=== PATIENT | male | born 1950 ===

== ENCOUNTER 2017-06-28 04:33 | Inpatient (IN) | payer MEDICARE, OTHER ==
[2017-06-28 04:38] VITALS: BMI 30.7
--- NOTE | 2017-06-28 04:55 | ED PDOC ---
Arrival/HPI - General Historian: Patient - History of Present Illness Symptom Onset: Sudden Symptom Course: Unchanged Activities at Onset: Rest Context: Home <Vitor Vela - Last Filed: 06/28/17 05:33> <Sergo Lala - Last Filed: 06/28/17 07:42> - General Chief Complaint: Medical Clearance Time Seen by Provider: 06/28/17 04:38 - History of Present Illness Narrative History of Present Illness (Text): 06/28/17 04:54 A 67 year old male, whose past medical history includes CAD, was brought in by EMS to the emergency department after called EMS because patient was moaning in bed. Patient reports nothing is bothering him. Denies any pain. Patient states he wasn't going to call EMS. Patient was diaphoretic and confused. Patient is poor historian. Denies any complaints at this time. (Vitor Vela) Past Medical History - Provider Review Nursing Documentation Reviewed: Yes - Cardiac Hx Hypertension: Yes Hx Pacemaker: No Other/Comment: stent x1 - Pulmonary Hx Respiratory Disorders: No - Neurological Hx Neurological Disorder: No Hx Paralysis: No - HEENT Hx HEENT Disorder: No - Renal Hx Renal Disorder: No - Endocrine/Metabolic Hx Endocrine Disorders: No - Hematological/Oncological Hx Blood Disorders: No Hx Blood Transfusions: No - Integumentary Hx Dermatological Disorder: No - Musculoskeletal/Rheumatological Hx Musculoskeletal Disorders: No - Gastrointestinal Hx Gastrointestinal Disorders: No - Genitourinary/Gynecological Hx Genitourinary Disorders: No - Psychiatric Hx Psychophysiologic Disorder: No Hx Emotional Abuse: No Hx Physical Abuse: No Hx Substance Use: No - Surgical History Hx Coronary Stent: Yes - Anesthesia Hx Anesthesia Reactions: No Hx Malignant Hyperthermia: No - Suicidal Assessment Feels Threatened In Home Enviroment: No <Vitor Vela - Last Filed: 06/28/17 05:33> Family/Social History - Physician Review Nursing Documentation Reviewed: Yes Family/Social History: No Known Family HX Smoking Status: Unknown If Ever Smoked Hx Alcohol Use: No Hx Substance Use: No <Vitor Vela - Last Filed: 06/28/17 05:33> Allergies/Home Meds <Vitor Vela - Last Filed: 06/28/17 05:33> <Sergo Lala - Last Filed: 06/28/17 07:42> Allergies/Adverse Reactions: Allergies No Known Allergies Allergy (Verified 06/28/17 04:38) Home Medications: Home Meds Medication Instructions Recorded Confirmed Aspirin [Ecotrin] 81 mg PO DAILY 02/25/16 06/28/17 Review of Systems - Physician Review All systems were reviewed & negative as marked: Yes - Review of Systems Constitutional: absent: Fevers Cardiovascular: absent: Chest Pain Gastrointestinal: absent: Abdominal Pain Neurological: Other (confused) Endocrine: Diaphoresis <Vitor Vela Filed: 06/28/17 05:33> Physical Exam Vital Signs Reviewed: Yes Temperature: Afebrile Blood Pressure: Normal Pulse: Regular Respiratory Rate: Normal Appearance: Positive for: Well-Appearing, Non-Toxic, Comfortable Pain Distress: None Mental Status: Positive for: Alert and Oriented X 3 Finger Stick Blood Glucose: 140 - Systems Exam Head: Present: Atraumatic, Normocephalic Pupils: Present: PERRL Extroacular Muscles: Present: EOMI Conjunctiva: Present: Normal Mouth: Present: Moist Mucous Membranes Neck: Present: Normal Range of Motion. No: Bruit Respiratory/Chest: Present: Clear to Auscultation, Good Air Exchange. No: Respiratory Distress, Accessory Muscle Use Cardiovascular: Present: Regular Rate and Rhythm, Normal S1, S2. No: Murmurs Abdomen: Present: Normal Bowel Sounds. No: Tenderness, Distention, Peritoneal Signs Back: Present: Normal Inspection Upper Extremity: Present: Normal Inspection. No: Cyanosis, Edema Lower Extremity: Present: Normal Inspection. No: Edema Neurological: Present: GCS=15, CN II-XII Intact, Speech Normal Skin: Present: Warm, Dry, Normal Color. No: Rashes Psychiatric: Present: Alert, Oriented x 3, Normal Insight, Normal Concentration <Vitor Vela Filed: 06/28/17 05:33> Vital Signs Temp Pulse Pulse Resp BP BP Pulse Ox 06/28/17 07:00 59 L 120/62 16 L 06/28/17 05:24 61 16 128/66 99 06/28/17 05:06 77 121/76 06/28/17 04:42 97.5 F L 77 16 121/76 96 Medical Decision Making - Lab Interpretations I have reviewed the lab results: Yes - EKG Interpretation Interpreted by ED Physician: Yes Type: 12 lead EKG <Vitor Vela - Last Filed: 06/28/17 05:33> <Sergo Lala - Last Filed: 06/28/17 07:42> ED Course and Treatment: 06/28/17 04:52 Impression: A 67 year old male, diaphoretic and confused, with no physical complaints. Plan: -- EKG -- CT head -- chest xray -- labs -- Zofran -- Reassess and disposition Progress Notes: EKG: Ordered, reviewed, and independently interpreted the EKG. Rate : 71 BPM Rhythm : NSR Interpretation : Normal intervals, normal axis 06/28/17 05:32 Chest xray: No active disease, as read by me. CT Head Without Intravenous Contrast IMPRESSION: 1. No definite acute intracranial abnormality. Acute infarction may be CT occult within first 24 hours. If a focal deficit persists, consider followup CT or MRI for further evaluation. 2. Sinus disease. 3. Incidental/non-acute findings are described above. Dictated and Authenticated by: Haseeb Shah MD 06/28/2017 5:26 AM Eastern Time ([place] & [place]) (Vitor Vela) 06/28/17 07:08 Turned over to me by , waiting for a second troponin though his first troponin is positive at 0.1. A call has been placed to the hospitalist for admission. 06/28/17 07:20 Discussed with . 06/28/17 07:41 Discussed with . (Sergo Lala) - Lab Interpretations Lab Results: 06/28/17 04:50 06/28/17 05:00 Lab Results 06/28/17 05:30: Urine Color yellow, Urine Appearance Slight-cloudy, Urine pH 6.0 , Ur Specific [place] >= 1.030, Urine Protein >=300 H, Urine Glucose (UA) 100 H , Urine Ketones Negative, Urine Blood Trace-intact H, Urine Nitrate Negative, Urine Bilirubin Negative, Urine Urobilinogen 0.2, Ur Leukocyte Esterase Negative , Urine RBC 5 - 10, Urine WBC 2 - 5, Ur Epithelial Cells 6 - 8, Amorphous Sediment Moderate 06/28/17 05:09: pCO2 38, pO2 68.0 L, HCO3 23.5, ABG pH 7.40, ABG Total CO2 24.7 , ABG O2 Saturation 96.8, ABG Base Excess -1.1, ABG Potassium 3.6, Glucose 161 H , Lactate 1.6, FiO2 21.0, Sodium 138.0, Chloride 108.0 H, Arterial Blood Potassium 3.6 06/28/17 05:00: Sodium 142, Potassium 3.7, Chloride 106, Carbon Dioxide 22, Anion Gap 19, BUN 18, Creatinine 0.9, Est GFR ( Amer) > 60, Est GFR (Non- Af Amer) > 60, Random Glucose 147 H, Calcium 9.2, Total Bilirubin 0.5, AST 56, ALT 71 H, Alkaline Phosphatase 64, Lactate Dehydrogenase 697, Total Creatine Kinase 353 H, CK-MB (CK-2) 4.0 H, CK-MB (CK-2) % Cancelled, Troponin I 0.10, NT- Pro-B Natriuret Pep 111, Total Protein 6.8, Albumin 3.7, Globulin 3.1, Albumin/ Globulin Ratio 1.2 06/28/17 04:50: Influenza Typ A,B (EIA) Negative for flu a/b 06/28/17 04:50: PT 11.3, INR 0.98 06/28/17 04:50: WBC 8.8 D, RBC 5.05, Hgb 14.7, Hct 45.1, MCV 89.3, MCH 29.1, MCHC 32.6, RDW 14.1, Plt Count 169, MPV 11.1 H, Gran % 42.5 L, Lymph % (Auto) 44.8 H, [place] % (Auto) 10.3 H, Eos % (Auto) 2.1, Baso % (Auto) 0.3, Gran # 3.73, Lymph # (Auto) 3.9 H, [place] # (Auto) 0.9 H, Eos # (Auto) 0.2, Baso # (Auto) 0.03 06/28/17 04:39: POC Glucose (mg/dL) 140 H - RAD Interpretation Radiology Orders: 06/28/17 04:39 HEAD W/O CONTRAST [CT] Stat CHEST PORTABLE [RAD] Stat - Medication Orders Current Medication Orders: Discontinued Medications Sodium Chloride (Sodium Chloride 0.9%) 1,000 mls @ 999 mls/hr IV .Q1H1M STA Stop: 06/28/17 07:30 Last Admin: 06/28/17 06:59 Dose: 999 mls/hr eMAR Start Stop Document 06/28/17 06:59 OCS (Rec: 06/28/17 07:00 OCS [id number]) Intravenous Solution Start Date 06/28/17 Start Time 07:00 End Date 06/28/17 End time 08:01 Total Infusion Time 61 Ondansetron HCl (Zofran Inj) 4 mg IVP STAT STA Stop: 06/28/17 04:49 Last Admin: 06/28/17 05:29 Dose: 4 mg IVP Administration Document 06/28/17 05:29 OCS (Rec: 06/28/17 05:29 OCS [id number]) Charges for Administration # of IVP Administrations 1 - Scribe Statement The provider has reviewed the documentation as recorded by the Scribe <Vitor Vela - Last Filed: 06/28/17 05:33> <Sergo Lala - Last Filed: 06/28/17 07:42> - Scribe Statement Oskar De Jesus Provider Scribe Attestation: All medical record entries made by the Scribe were at my direction and personally dictated by me. I have reviewed the chart and agree that the record accurately reflects my personal performance of the history, physical exam, medical decision making, and the department course for this patient. I have also personally directed, reviewed, and agree with the discharge instructions and disposition. (Vitor Vela) Disposition/Present on Arrival - Present on Arrival History of DVT/PE: No History of Uncontrolled Diabetes: No Urinary Catheter: No History of Decub. Ulcer: No History Surgical Site Infection Following: None <Vitor Vela - Last Filed: 06/28/17 05:33> - Present on Arrival Any Indicators Present on Arrival: No History of DVT/PE: No History of Uncontrolled Diabetes: No Urinary Catheter: No History of Decub. Ulcer: No - Disposition Have Diagnosis and Disposition been Completed?: Yes Disposition Time: 07:42 Patient Plan: Observation, Telemetry <Sergo Lala - Last Filed: 06/28/17 07:42> - Disposition Diagnosis: Elevated troponin, Near syncope Disposition: HOSPITALIZED Condition: GOOD Referrals: Castillo Puentes MD [Primary Care Provider] - Follow up with primary Forms: [employer] (Japanese)
[2017-06-28 05:13] LABS: ARTERIAL BLOOD GAS HCO3 23.5 mmol/L (21-28); ARTERIAL BLOOD GAS O2 SAT 96.8 % (95-98); ARTERIAL BLOOD GAS PCO2 38 mm/Hg (35-45); ARTERIAL BLOOD GAS TCO2 24.7 mmol.L (22-28)
[2017-06-28 05:14] LABS: BASO # 0.03 K/mm3 (0.0-2.0); BASO % 0.3 % (0.0-3.0); EOS # 0.2 (0.0-0.7); EOS % 2.1 % (1.5-5.0); GRAN # 3.73 (1.4-6.5); GRAN % 42.5 % (50.0-68.0); HEMOGLOBIN 14.7 g/dL (14.0-18.0); LYMPH # 3.9 (1.2-3.4); LYMPH % 44.8 % (22.0-35.0); MEAN CELL VOLUME 89.3 fl (80.0-105.0); MEAN CORPUSCULAR HEMOGLOBIN 29.1 pg (25.0-35.0); MEAN CORPUSCULAR HGB CONC 32.6 g/dl (31.0-37.0); MEAN PLATELET VOLUME 11.1 fl (7.0-11.0); MONO # 0.9 (0.1-0.6); MONO % 10.3 % (1.0-6.0); RBC 5.05 10^6/uL (3.5-6.1); RED CELL DISTRIBUTION WIDTH 14.1 % (11.5-14.5); WHITE BLOOD COUNT 8.8 10^3/ul (4.5-11.0)
[2017-06-28 05:19] LABS: INR 0.98 (0.93-1.08); PROTHROMBIN TIME 11.3 SECONDS (9.4-12.5)
--- NOTE | 2017-06-28 05:26 | CT ---
EXAM: CT Head Without Intravenous Contrast CLINICAL HISTORY: 67 years old, male; Signs and symptoms; Altered mental status/memory loss; Additional info: Confusion TECHNIQUE: Axial computed tomography images of the head/brain without intravenous contrast. All CT scans at this facility use one or more dose reduction techniques, viz.: automated exposure control; ma/kV adjustment per patient size (including targeted exams where dose is matched to indication; i.e. head); or iterative reconstruction technique. Coronal and sagittal reformatted images were created and reviewed. COMPARISON: No relevant prior studies available. FINDINGS: Brain: Mild atrophy. No intracranial hemorrhage. No mass. No definite edema. Ventricles: No hydrocephalus. Bones/joints: No acute fracture. Soft tissues: Unremarkable. Vasculature: Minimal atherosclerotic disease of intracranial arteries. Sinuses: [id number] mucosal thickening of maxillary sinuses. Scattered minimal mucosal thickening of remaining sinuses. Few maxillary retention cysts. Air-fluid level within LEFT maxillary sinus. Mastoid air cells: No mastoid effusion. Orbits: Unremarkable as visualized. IMPRESSION: 1. No definite acute intracranial abnormality. Acute infarction may be CT occult within first 24 hours. If a focal deficit persists, consider followup CT or MRI for further evaluation. 2. Sinus disease. 3. Incidental/non-acute findings are described above.
[2017-06-28 05:32] LABS: B-TYPE NATRIURETIC PEPTIDE 111 pg/mL (0-450)
[2017-06-28 05:49] LABS: ALB/GLOB RATIO 1.2 (1.1-1.8); ALBUMIN 3.7 g/dL (3.0-4.8); ALT/SGPT 71 U/L (7-56); AST/SGOT 56 U/L (17-59); BLOOD UREA NITROGEN 18 mg/dL (7-21); CALCIUM 9.2 mg/dL (8.4-10.5); GFR AFRICAN-AMERICAN > 60; GFR NON-AFRICAN AMERICAN > 60
[2017-06-28 05:58] LABS: URINE BILIRUBIN NEGATIVE (NEGATIVE); URINE BLOOD TRACE-INTACT (NEGATIVE); URINE GLUCOSE (UA) 100 mg/dL (NEGATIVE); URINE LEUKOCYTE ESTERASE NEGATIVE Leu/uL (NEGATIVE); URINE NITRATE NEGATIVE (NEGATIVE); URINE PROTEIN >=300 mg/dL (<30 mg/dL); URINE UROBILINOGEN 0.2 E.U./dL (<1 E.U./dL)
[2017-06-28 05:59] LABS: URINE APPEARANCE SLIGHT-CLOUDY (CLEAR)
[2017-06-28 06:02] LABS: URINE AMORPHOUS SEDIMENT MODERATE
[2017-06-28] MEDS ORDERED: Sodium Chloride 0.9% 1,000 ML IV STA (06:30)
[2017-06-28 08:01] LABS: CK-MB 3.8 ng/mL (0.0-3.6); TROPONIN I 0.13 ng/mL
[2017-06-28] MEDS ORDERED: Nitroglycerin 2% Ointment Foilpak UD TOP STA (08:27)
[2017-06-28] MEDS ORDERED: Enoxaparin 80 mg Syringe SC STA (08:27)
--- NOTE | 2017-06-28 08:27 | RAD ---
HISTORY: Generalized Weakness COMPARISON: No prior. FINDINGS: LUNGS: No active pulmonary disease. PLEURA: No significant pleural effusion identified, no pneumothorax apparent. CARDIOVASCULAR: Normal. OSSEOUS STRUCTURES: No significant abnormalities. VISUALIZED UPPER ABDOMEN: Normal. OTHER FINDINGS: None. IMPRESSION: No active disease.
--- NOTE | 2017-06-28 09:10 | CP.PCM.HP ---
<Sophia Elizabeth - Last Filed: 06/28/17 12:41> History of Present Illness - History of Present Illness History of Present Illness: 67 yo male with PMH of CAD s/p 3 stents presents to ED after found him minimally responsive this morning. Per at bedside patient was snoring abnormally and when she tried to wake him up he was not responding. She also states that he was diaphoretic and holding his chest. She called EMS. Patient states that he does not recall the event and woke up in the ED. He states that he was nausea when he awoke and report a headache with some lightheadedness when he sits up. He does report 1 episode of SOB while taking out the trash last night. He states that he normally does not become sob and exercise about 1 hour a day. His last stress test was about 1 year ago. 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 PMH: PSH: left inguinal hernia repair, shoulder repair, cardiac cath with stents social history: denies smoking, occasional alcohol use, denies illicit drug use Family history: father from [place] at age 51, mother HTN, CHF, brother a. fib, hyperlipidemia allergy: NKDA home meds: lopressor 25mg BID, atrovastatin 40mg daily, asa 81mg daily PMD: Dr. Puentes cardiology: Haylee Present on Admission - Present on Admission Any Indicators Present on Admission: No Review of Systems - Constitutional Constitutional: Headache. absent: Chills, Fatigue, Fever, Lethargy - EENT Eyes: absent: Blurred Vision, Change in Vision Nose/Mouth/Throat: absent: Nasal Congestion, Nasal Discharge, Sore Throat - Cardiovascular Cardiovascular: Diaphoresis. absent: Chest Pain, Chest Pain at Rest, Dyspnea, Leg Edema, Palpitations - Respiratory Respiratory: absent: Cough, Dyspnea - Gastrointestinal Gastrointestinal: absent: Abdominal Pain, Change in Bowel Habits, Constipation, Diarrhea, Nausea, Vomiting - Genitourinary Genitourinary: absent: Dysuria, Flank Pain, Hematuria - Integumentary Integumentary: absent: Pruritus, Rash, Skin Ulcer, Swelling, Wounds - Neurological Neurological: Headaches. absent: Dizziness, Numbness, Focal Weakness, Syncope, Weakness - Hematologic/Lymphatic Hematologic: absent: Easy Bleeding, Easy Bruising Past Patient History - Past Social History Smoking Status: Unknown If Ever Smoked - CARDIAC Hx Hypertension: Yes Hx Pacemaker: No Other/Comment: stent x1 - PULMONARY Hx Respiratory Disorders: No - NEUROLOGICAL Hx Neurological Disorder: No Hx Paralysis: No - HEENT Hx HEENT Problems: No - RENAL Hx Chronic Kidney Disease: No - ENDOCRINE/METABOLIC Hx Endocrine Disorders: No - HEMATOLOGICAL/ONCOLOGICAL Hx Blood Disorders: No Hx Blood Transfusions: No - INTEGUMENTARY Hx Dermatological Problems: No - MUSCULOSKELETAL/RHEUMATOLOGICAL Hx Musculoskeletal Disorders: No - GASTROINTESTINAL Hx Gastrointestinal Disorders: No - GENITOURINARY/GYNECOLOGICAL Hx Genitourinary Disorders: No - PSYCHIATRIC Hx Psychophysiologic Disorder: No Hx Emotional Abuse: No Hx Physical Abuse: No Hx Substance Use: No - SURGICAL HISTORY Hx Coronary Stent: Yes - ANESTHESIA Hx Anesthesia Reactions: No Hx Malignant Hyperthermia: No Meds Allergies/Adverse Reactions: Allergies Allergy/AdvReac Type Severity Reaction Status Date / Time No Known Allergies Allergy Verified 06/28/17 04:38 Physical Exam - Constitutional Appears: Well, No Acute Distress - Head Exam Head Exam: ATRAUMATIC, NORMAL INSPECTION, NORMOCEPHALIC - Eye Exam Eye Exam: EOMI, Normal appearance - ENT Exam ENT Exam: Mucous Membranes Moist - Respiratory Exam Respiratory Exam: Clear to Auscultation Bilateral, NORMAL BREATHING PATTERN. absent: Decreased Breath Sounds, Rhonchi, Wheezes, Respiratory Distress - Cardiovascular Exam Cardiovascular Exam: REGULAR RHYTHM, +S1, +S2. absent: Tachycardia, Systolic Murmur - GI/Abdominal Exam GI & Abdominal Exam: Normal Bowel Sounds, Soft. absent: Distended, Firm, Guarding, Tenderness - Extremities Exam Extremities exam: Positive for: normal inspection. Negative for: pedal edema, tenderness - Back Exam Back exam: NORMAL INSPECTION. absent: CVA tenderness (L), CVA tenderness (R) - Neurological Exam Neurological exam: Alert, Oriented x3 - Psychiatric Exam Psychiatric exam: Normal Affect, Normal Mood - Skin Skin Exam: Dry, Intact, Normal Color, Warm Results - Vital Signs Recent Vital Signs: Last Vital Signs Temp 97.5 F L 06/28/17 04:42 Pulse 71 06/28/17 08:48 Resp 18 06/28/17 08:48 BP 118/65 06/28/17 08:48 Pulse Ox 100 06/28/17 08:48 - Labs Result Diagrams: 06/28/17 04:50 06/28/17 05:00 Assessment & Plan - Assessment and Plan (Free Text) Assessment: 67 yo male with PMH of CAD s/p 3 stents presents to ED after found him minimally responsive this morning, in ED he was found to have indeterminate trops and hypoxemic on abg. Plan: elevated trops - trops 0.1, 0.13 - will continue to trend - in ED given asa 324 and lovenox 80mg - will continue lovenox 80mg BID - repeat EKG - continue home medication lopressor 25mg bid, asa 81mg, lipitor 40mg - echo - consider starting abram inhibitor - cardiology consulted episode of decreased responsiveness - resolved - possible due to hypoxemia, ischemia - glucose within normal limits - d-dimer ordered, within normal limits - flu negative - trops trending up, 0.1, 0.13, will continue to trend nausea - zofran prn GI ppx- pepcid DVT ppx- scds, lovenox <Irfan,Mohammad - Last Filed: 07/01/17 15:09> Results - Vital Signs Recent Vital Signs: Last Vital Signs Temp 98 F 07/01/17 12:00 Pulse 57 L 07/01/17 12:00 Resp 20 07/01/17 12:00 BP 141/74 07/01/17 12:00 Pulse Ox 98 07/01/17 06:00 - Labs Result Diagrams: 07/01/17 05:30 07/01/17 05:30 Labs: Laboratory Results - last 24 hr 07/01/17 07/01/17 05:30 05:30 WBC 7.4 RBC 5.09 Hgb 14.6 Hct 45.2 MCV 88.8 MCH 28.7 MCHC 32.3 RDW 14.0 Plt Count 149 MPV 11.2 H Gran % 64.5 Lymph % (Auto) 22.0 [place] % (Auto) 11.4 H Eos % (Auto) 1.8 Baso % (Auto) 0.3 Gran # 4.74 Lymph # (Auto) 1.6 [place] # (Auto) 0.8 H Eos # (Auto) 0.1 Baso # (Auto) 0.02 Sodium 141 Potassium 4.1 Chloride 105 Carbon Dioxide 26 Anion Gap 13 BUN 15 Creatinine 0.9 Est GFR ( Amer) > 60 Est GFR (Non-Af Amer) > 60 Random Glucose 90 Calcium 9.1 Total Bilirubin 0.6 AST 45 ALT 62 H Alkaline Phosphatase 49 Total Protein 6.7 Albumin 3.6 Globulin 3.1 Albumin/Globulin Ratio 1.2 Attending/Attestation - Attestation I have personally seen and examined this patient.: Yes I have fully participated in the care of the patient.: Yes I have reviewed all pertinent clinical information: Yes Notes (Text): 07/01/17 15:03 Patient was seen and examined with medical director/head team physician. 67 yrs old male with PMH of CAD s/p 3 stents,HTN,Hyperlipidemia is admitted with diaphoresis, H/O intermittent dyspnea on exertion found to have elevated troponin suggestive of NSEMI. D dimer is normal, Hypoxia has improved with IV lasix, now on room air. Continue ASA/IV Heparin/Metoprolol/lipitor We will get 2D Echo We will get cardiology consult. Management plan was discussed in detail with patient. Education was provided.
--- NOTE | 2017-06-28 12:11 | CARD ---
APPROVED REPORT EXAM: Two-dimensional and M-mode echocardiogram with Doppler and color Doppler. INDICATION Syncope 2D DIMENSIONS Left Atrium (2D)3.7 (1.6-4.0cm)IVSd1.4 (0.7-1.1cm) LVDd4.1 (3.9-5.9cm)PWd1.3 (0.7-1.1cm) LVDs3.1 (2.5-4.0cm)FS (%) 25.1 % LVEF (%)50.1 (>50%) M-Mode DIMENSIONS Aortic Root2.70 (2.2-3.7cm)Aortic Cusp Exc.1.80 (1.5-2.0cm) Aortic Valve AoV Peak Ggnssfsk602.0cm/Rui Peak GR.9mmHg Mitral Valve MV E Txiqedca12.6cm/sMV A Tvqiwldm898.0cm/sE/A ratio0.6 TDI E/Lateral E'0.0E/Medial E'0.0 LEFT VENTRICLE The left ventricle is normal size. There is mild concentric left ventricular hypertrophy. Left ventricle systolic function is borderline. There is normal LV segmental wall motion. Transmitral Doppler flow pattern is Grade I-abnormal relaxation pattern. RIGHT VENTRICLE The right ventricle is normal size. There is normal right ventricular wall thickness. The right ventricular systolic function is normal. ATRIA The left atrium size is normal. The right atrium size is normal. AORTIC VALVE The aortic valve is normal in structure. No aortic regurgitation is present. There is no aortic valvular stenosis. MITRAL VALVE The mitral valve is mildly thickened. Mitral regurgitation is mild. TRICUSPID VALVE The tricuspid valve is normal in structure. PULMONIC VALVE There is trace pulmonic valvular regurgitation. GREAT VESSELS The aortic root is normal in size. The IVC is normal in size and collapses >50% with inspiration. PERICARDIAL EFFUSION There is no pericardial effusion. <Conclusion> The left ventricle is normal size. There is mild concentric left ventricular hypertrophy. Left ventricle systolic function is borderline. There is normal LV segmental wall motion. Transmitral Doppler flow pattern is Grade I-abnormal relaxation pattern. Mitral regurgitation is mild.
--- NOTE | 2017-06-28 12:26 | CARD ---
APPROVED REPORT EKG Measurement Heart [id number] <Conclusion> Normal sinus rhythm Normal ECG
[2017-06-28] MEDS ORDERED: Influenza Vaccine 60 mcg/0.5 mL SYR (4YR UP) IM ONE (14:03)
[2017-06-28] MEDS ORDERED: Pneumococcal 23-Valent Vaccine IM ONE (14:03)
[2017-06-28] MEDS: Enoxaparin 80 mg Syringe SC SCH (17:47)
--- NOTE | 2017-06-28 22:00 | CARD ---
APPROVED REPORT EKG Measurement Heart [id number] <Conclusion> Sinus bradycardia Otherwise normal ECG
[2017-06-29] MEDS: Enoxaparin 80 mg Syringe SC SCH (05:28)
[2017-06-29 06:22] LABS: BASO # 0.02 K/mm3 (0.0-2.0); BASO % 0.2 % (0.0-3.0); EOS # 0.1 (0.0-0.7); EOS % 1.3 % (1.5-5.0); GRAN # 6.06 (1.4-6.5); GRAN % 67.5 % (50.0-68.0); HEMOGLOBIN 13.6 g/dL (14.0-18.0); LYMPH # 1.8 (1.2-3.4); MEAN CELL VOLUME 90.2 fl (80.0-105.0); MEAN CORPUSCULAR HEMOGLOBIN 28.3 pg (25.0-35.0); MEAN CORPUSCULAR HGB CONC 31.3 g/dl (31.0-37.0); MEAN PLATELET VOLUME 11.4 fl (7.0-11.0); RBC 4.81 10^6/uL (3.5-6.1); RED CELL DISTRIBUTION WIDTH 14.5 % (11.5-14.5)
[2017-06-29 07:51] LABS: ALB/GLOB RATIO 1.2 (1.1-1.8); ALBUMIN 3.4 g/dL (3.0-4.8); ALT/SGPT 60 U/L (7-56); AST/SGOT 36 U/L (17-59); BLOOD UREA NITROGEN 16 mg/dL (7-21); CALCIUM 8.9 mg/dL (8.4-10.5); GFR AFRICAN-AMERICAN > 60; GFR NON-AFRICAN AMERICAN > 60
--- NOTE | 2017-06-29 12:48 | CP.PCM.PN ---
<MalLisa - Last Filed: 06/29/17 12:45> Subjective - Date & Time of Evaluation Date of Evaluation: 06/29/17 Time of Evaluation: 07:00 - Subjective Subjective: Patient seen and examined at bedside. Patient resting comfortably in bed with no new complaints at this time. Patient says he is only having minimal chest pain this morning when trying to sit up in bed. He denies SOB, abdominal pain, N &V, diarrhea, constipation, and leg pain/swelling. Objective - Vital Signs/Intake and Output Vital Signs (last 24 hours): Temp Pulse Resp BP Pulse Ox 98.1 F 56 L 18 129/65 95 06/29/17 12:00 06/29/17 12:00 06/29/17 12:00 06/29/17 12:00 06/29/17 05:43 - Medications Medications: Current Medications Aspirin (Ecotrin) 81 mg PO DAILY [facility] Last Admin: 06/29/17 09:03 Dose: 81 mg Atorvastatin Calcium (Lipitor) 40 mg PO DIN [facility] Last Admin: 06/28/17 17:48 Dose: 40 mg Enoxaparin Sodium (Lovenox) 80 mg SC Q12H [facility] PRN Reason: Protocol Last Admin: 06/29/17 05:28 Dose: 80 mg Famotidine (Pepcid) 20 mg PO BID [facility] Last Admin: 06/29/17 09:03 Dose: 20 mg Metoprolol Tartrate (Lopressor) 25 mg PO BID [facility] Last Admin: 06/29/17 09:03 Dose: 25 mg Ondansetron HCl (Zofran Inj) 4 mg IVP Q6 PRN PRN Reason: Nausea/Vomiting - Labs Labs: PT 11.3 SECONDS (9.4-12.5) 06/28/17 04:50 INR 0.98 (0.93-1.08) 06/28/17 04:50 APTT 26.3 Seconds (25.1-36.5) 06/28/17 05:00 - Constitutional Appears: Non-toxic, No Acute Distress - Head Exam Head Exam: ATRAUMATIC, NORMAL INSPECTION, NORMOCEPHALIC - Eye Exam Eye Exam: EOMI, Normal appearance, PERRL - ENT Exam ENT Exam: Mucous Membranes Moist - Respiratory Exam Respiratory Exam: Clear to Ausculation Bilateral, NORMAL BREATHING PATTERN - Cardiovascular Exam Cardiovascular Exam: RRR, +S1, +S2. absent: Gallop, JVD, Rubs, Murmur - GI/Abdominal Exam GI & Abdominal Exam: Soft, Normal Bowel Sounds. absent: Distended, Tenderness - Extremities Exam Extremities Exam: Normal Inspection - Neurological Exam Neurological Exam: Alert, Awake, Oriented x3 - Psychiatric Exam Psychiatric exam: Normal Affect, Normal Mood - Skin Skin Exam: Dry, Intact, Normal Color, Warm Assessment and Plan - Assessment and Plan (Free Text) Assessment: 67 yo male with PMH of CAD s/p 3 stents presents after being found him minimally responsive at home, with indeterminate trops. Plan: Elevated Troponin - Trend: 0.1, 0.13, 0.14 - Cardiology consulted (Mukund), recs appreciated - EKG: sinus bradycardia in the 50s - CXR: No active disease - echo: grade 1 diastolic dysfunction, mild LVH, borderline systolic function, mild mitral regurgitation, EF: 50.1% - BNP 111 - continue home medication lopressor 25mg bid, asa 81mg, lipitor 40mg - lovenox 80mg BID - consider starting abram inhibitor if cardiology agrees Episode of decreased responsiveness - resolved - possible due to hypoxemia, ischemia - glucose within normal limits - d-dimer WNL - flu negative - blood culture negative - urine culture negative Nausea - resolved - zofran prn GI ppx- pepcid DVT ppx- scds, lovenox <Jessica Naranjo - Last Filed: 07/01/17 15:13> Objective - Vital Signs/Intake and Output Vital Signs (last 24 hours): Temp Pulse Resp BP Pulse Ox 98 F 57 L 20 141/74 98 07/01/17 12:00 07/01/17 12:00 07/01/17 12:00 07/01/17 12:00 07/01/17 06:00 Intake and Output: 07/01/17 07/01/17 06:59 18:59 Intake Total 2059 Balance 2059 - Labs Labs: 07/01/17 05:30 07/01/17 05:30 PT 11.3 SECONDS (9.4-12.5) 06/28/17 04:50 INR 0.98 (0.93-1.08) 06/28/17 04:50 APTT 26.3 Seconds (25.1-36.5) 06/28/17 05:00 Attending/Attestation - Attestation I have personally seen and examined this patient.: Yes I have fully participated in the care of the patient.: Yes I have reviewed all pertinent clinical information, including history, physical exam and plan: Yes Notes (Text): 07/01/17 15:10 Patient was seen and examined with center medical and lab director. 67 yrs old male with PMH of CAD s/p multiple cardiac stents,HTN,Hyperlipidemia is admitted with diaphoresis, H/O intermittent dyspnea on exertion found to have elevated troponin suggestive of NSEMI. Continue ASA/IV Heparin/Metoprolol/lipitor/plavix Cardiology evaluation is appreciated. Patient is scheduled for cardiac catherization tomorrow. Management plan was discussed in detail with patient. Education was provided.
--- NOTE | 2017-06-29 16:23 | CARD ---
APPROVED REPORT EKG Measurement Heart [id number] WA [id number] <Conclusion> Normal sinus rhythm Normal ECG
--- NOTE | 2017-06-29 22:35 | CON ---
DATE: 06/29/2017 CARDIOLOGY CONSULTATION HISTORY OF PRESENT ILLNESS: The patient is a 67-year-old male with a history of multivessel PTCA in the past, who presents with an episode of acute dyspnea at night. He was found to have elevated troponins. PAST MEDICAL HISTORY: History of multivessel PTCA and stent. He has a subtotally occluded RCA, which is chronic. He suffers from hypercholesterolemia. Negative diabetes mellitus. SOCIAL HISTORY: The patient denies smoking. REVIEW OF SYSTEMS: A 14-point review of systems was reviewed in detail. Patient denies chest pain. Denies dyspnea. PHYSICAL EXAMINATION: VITAL SIGNS: Blood pressure is 129/65, heart rate in the 50s. Normal sinus rhythm. NECK: Negative JVD. LUNGS: Without rales. HEART: Reveal S1, S2. EXTREMITIES: Without edema. EKG shows normal sinus rhythm with nonspecific ST flattening. LABORATORY DATA: Hemoglobin is 13.2. Chemistries, troponins are 0.13 and 0.14 with a potassium of 4.1. IMPRESSION: 1. [id number] myocardial infarction. 2. Coronary artery disease. 3. History of multivessel coronary artery disease. 4. Hypercholesterolemia. 5. Episode of witnessed dyspnea according to the . Given these findings, we will load the patient with Plavix today. Lovenox has been given. We will schedule the patient for cardiac catheterization in the morning, which the patient is agreeable. Xavi Duval MD
[2017-06-30 06:52] LABS: ALB/GLOB RATIO 1.2 (1.1-1.8); ALBUMIN 3.5 g/dL (3.0-4.8); ALT/SGPT 54 U/L (7-56); AST/SGOT 29 U/L (17-59); BLOOD UREA NITROGEN 15 mg/dL (7-21); CALCIUM 9.2 mg/dL (8.4-10.5); GFR AFRICAN-AMERICAN > 60; GFR NON-AFRICAN AMERICAN > 60
[2017-06-30 07:09] LABS: BASO # 0.02 K/mm3 (0.0-2.0); BASO % 0.3 % (0.0-3.0); EOS # 0.1 (0.0-0.7); EOS % 2.1 % (1.5-5.0); GRAN # 3.94 (1.4-6.5); GRAN % 62.5 % (50.0-68.0); HEMOGLOBIN 13.9 g/dL (14.0-18.0); LYMPH # 1.4 (1.2-3.4); LYMPH % 22.2 % (22.0-35.0); MEAN CELL VOLUME 89.5 fl (80.0-105.0); MEAN CORPUSCULAR HEMOGLOBIN 28.6 pg (25.0-35.0); MEAN PLATELET VOLUME 11.3 fl (7.0-11.0); MONO # 0.8 (0.1-0.6); MONO % 12.9 % (1.0-6.0); RBC 4.86 10^6/uL (3.5-6.1); RED CELL DISTRIBUTION WIDTH 14.3 % (11.5-14.5); WHITE BLOOD COUNT 6.3 10^3/ul (4.5-11.0)
[2017-06-30] MEDS ORDERED: Lidocaine 2% Inj (20ml) ONE (08:18)
[2017-06-30] MEDS ORDERED: Midazolam 2 MG/2 ML VIAL ONE ×2 (08:18→08:39)
[2017-06-30] MEDS ORDERED: HEPARIN SODIUM/NS 2,000 ML IV ONE (08:19)
[2017-06-30] MEDS ORDERED: Iodixanol 320 MG/ML 200 ML BOTTLE IV ONE (08:19)
[2017-06-30] MEDS ORDERED: Sodium Chloride 0.9% 1,000 ML IV SCH (09:45)
--- NOTE | 2017-06-30 15:14 | CP.PCM.PN ---
<MalGerhardLisa - Last Filed: 06/30/17 15:11> Subjective - Date & Time of Evaluation Date of Evaluation: 06/30/17 Time of Evaluation: 07:00 - Subjective Subjective: Patient seen and examined at bedside. No acute events overnight. Patient resting comfortably in bed post cardiac catheterization with no new complaints at this time. He denies SOB, abdominal pain, N&V, diarrhea, constipation, and leg pain/swelling. Objective - Vital Signs/Intake and Output Vital Signs (last 24 hours): Temp Pulse Resp BP Pulse Ox 97.6 F 62 19 135/68 98 06/30/17 13:15 06/30/17 13:15 06/30/17 13:15 06/30/17 13:15 06/30/17 06:00 Intake and Output: 06/30/17 06/30/17 06:59 18:59 Intake Total 240 Balance 240 - Medications Medications: Current Medications Aspirin (Ecotrin) 81 mg PO DAILY [facility] Last Admin: 06/30/17 12:59 Dose: Not Given Atorvastatin Calcium (Lipitor) 40 mg PO DIN [facility] Last Admin: 06/29/17 17:00 Dose: 40 mg Clopidogrel Bisulfate (Plavix) 75 mg PO DAILY [facility] Last Admin: 06/30/17 13:01 Dose: Not Given Lisinopril (Zestril) 2.5 mg PO DAILY [facility] Metoprolol Tartrate (Lopressor) 25 mg PO BID [facility] Last Admin: 06/30/17 13:00 Dose: Not Given Ondansetron HCl (Zofran Inj) 4 mg IVP Q6 PRN PRN Reason: Nausea/Vomiting - Labs Labs: 06/30/17 05:30 06/30/17 05:30 PT 11.3 SECONDS (9.4-12.5) 06/28/17 04:50 INR 0.98 (0.93-1.08) 06/28/17 04:50 APTT 26.3 Seconds (25.1-36.5) 06/28/17 05:00 - Additional Findings Additional findings: - Constitutional Appears: Non-toxic, No Acute Distress - Head Exam Head Exam: ATRAUMATIC, NORMAL INSPECTION, NORMOCEPHALIC - Eye Exam Eye Exam: EOMI, Normal appearance, PERRL - ENT Exam ENT Exam: Mucous Membranes Moist - Respiratory Exam Respiratory Exam: Clear to Ausculation Bilateral, NORMAL BREATHING PATTERN - Cardiovascular Exam Cardiovascular Exam: RRR, +S1, +S2. absent: Gallop, JVD, Rubs, Murmur - GI/Abdominal Exam GI & Abdominal Exam: Soft, Normal Bowel Sounds. absent: Distended, Tenderness - Extremities Exam Extremities Exam: Normal Inspection, Bandage over cath site c/d/i - Neurological Exam Neurological Exam: Alert, Awake, Oriented x3 - Psychiatric Exam Psychiatric exam: Normal Affect, Normal Mood - Skin Skin Exam: Dry, Intact, Normal Color, Warm Assessment and Plan - Assessment and Plan (Free Text) Assessment: 67 yo male with PMH of CAD s/p 3 stents presents after being found him minimally responsive at home, with indeterminate trops. S/P cath. Plan: Elevated Troponin - Trend: 0.1, 0.13, 0.14 - Cardiology consulted (Mukund), recs appreciated * s/p cardiac cath with stent in LAD - EKG: sinus bradycardia in the 50s - CXR: No active disease - echo: grade 1 diastolic dysfunction, mild LVH, borderline systolic function, mild mitral regurgitation, EF: 50.1% - BNP 111 - continue home medication lopressor 25mg bid, asa 81mg, lipitor 40mg - lovenox 80mg BID - Lisinopril 2.5 mg Episode of decreased responsiveness - resolved - possible due to hypoxemia, ischemia - glucose within normal limits - d-dimer WNL - flu negative - blood culture negative - urine culture negative Nausea - resolved - zofran prn GI ppx- pepcid DVT ppx- scds, lovenox <Jessica Naranjo - Last Filed: 07/01/17 15:17> Objective - Vital Signs/Intake and Output Vital Signs (last 24 hours): Temp Pulse Resp BP Pulse Ox 98 F 57 L 20 141/74 98 07/01/17 12:00 07/01/17 12:00 07/01/17 12:00 07/01/17 12:00 07/01/17 06:00 Intake and Output: 07/01/17 07/01/17 06:59 18:59 Intake Total 2059 Balance 2059 - Labs Labs: 07/01/17 05:30 07/01/17 05:30 PT 11.3 SECONDS (9.4-12.5) 06/28/17 04:50 INR 0.98 (0.93-1.08) 06/28/17 04:50 APTT 26.3 Seconds (25.1-36.5) 06/28/17 05:00 Attending/Attestation - Attestation I have personally seen and examined this patient.: Yes I have fully participated in the care of the patient.: Yes I have reviewed all pertinent clinical information, including history, physical exam and plan: Yes Notes (Text): 07/01/17 15:15 Patient was seen and examined with medical receptionist assistant. 67 yrs old male with PMH of CAD s/p 3 stents,HTN,Hyperlipidemia is admitted with diaphoresis, H/O intermittent dyspnea on exertion found to have elevated troponin suggestive of NSEMI. Patient underwent cardiac catherization today and had PTCA and proximal LAD stent placed, we will monitor in telemetery. Continue ASA/Plavix/Metoprolol/Lipitor and lisinopril. Management plan was discussed in detail with patient. Education was provided.
--- NOTE | 2017-06-30 18:01 | CARD ---
APPROVED REPORT EKG Measurement Heart [id number] MD [id number] <Conclusion> Poor data quality, interpretation may be adversely affected Sinus bradycardia with occasional premature ventricular complexes Possible Left atrial enlargement Borderline ECG
--- NOTE | 2017-06-30 20:07 | CARDCATH ---
PROCEDURE DATE: 06/30/2017 HISTORY: The patient is a 67-year-old male who presented with a non-STEMI. The patient has multiple cardiac risk factors and also suffers from documented coronary disease and is status post PTCA in the past. Because of this, cardiac catheterization was recommended. PROCEDURE: Left heart catheterization with coronary arteriography, left ventriculogram followed by PTCA and stent of an LAD. The right femoral artery was cannulated with a 6-Ivorian sheath. There were no complications. I performed moderate sedation which included the presence of an independent trained observer that assisted in monitoring the patient's level of consciousness and physiologic status. After administration of Versed and fentanyl, my intra service time was 30 minutes. The findings on catheterization, a left ventricle that revealed mild anterior wall hypokinesis. Estimated ejection fraction could not be determined. The patient had a left dominant circulation. The RCA was subtotally occluded in its proximal portion which is chronic. The vessel was small and no manipulation was performed. The left main artery revealed a 40% distal left main stenosis. The LAD revealed a 95% stenosis in its proximal portion. There was diffuse atherosclerosis throughout the LAD and diagonal vessels. The circumflex artery revealed a patent stent in the proximal portion. The distal posterolateral branch was stenosed, which was chronic. The patient was started on intravenous Angiomax on the fluoroscopic guide, the guiding catheter was placed in the ostium of the left main artery. An 0.014 ATW wire was used to cross the critical proximal LAD stenoses. A 2.0 balloon was utilized to predilate the lesion. A 2.5 x 12-mm drug-eluting stent was placed and deployed at 16 atmospheres of pressure. After balloon deflation and removal, repeat coronary arteriography revealed an excellent result with resolution of the critical stenosis, no residual stenosis and PRESTON III flow. Angio-Seal was used to close the femoral artery site. The patient tolerated the procedure well. In summary, the procedure was successful for PTCA and stent of a 95% stenosis of the proximal LAD. Cardiac catheterization reveals multivessel CAD including a 40% distal left main stenosis. Given these findings, the patient will need to remain on aspirin indefinitely and Plavix for at least a year. He needs to be aggressive in a cardiac risk reduction program given his diffuse atherosclerosis. Xavi Duval MD [facility] # [id number]
[2017-07-01 01:23] VITALS: RESP 20
[2017-07-01 06:37] VITALS: O2SAT 98
[2017-07-01 07:00] LABS: BASO # 0.02 K/mm3 (0.0-2.0); BASO % 0.3 % (0.0-3.0); EOS # 0.1 (0.0-0.7); EOS % 1.8 % (1.5-5.0); GRAN # 4.74 (1.4-6.5); GRAN % 64.5 % (50.0-68.0); HEMOGLOBIN 14.6 g/dL (14.0-18.0); LYMPH # 1.6 (1.2-3.4); MEAN CELL VOLUME 88.8 fl (80.0-105.0); MEAN CORPUSCULAR HEMOGLOBIN 28.7 pg (25.0-35.0); MEAN CORPUSCULAR HGB CONC 32.3 g/dl (31.0-37.0); MEAN PLATELET VOLUME 11.2 fl (7.0-11.0); MONO # 0.8 (0.1-0.6); MONO % 11.4 % (1.0-6.0); RBC 5.09 10^6/uL (3.5-6.1); WHITE BLOOD COUNT 7.4 10^3/ul (4.5-11.0)
[2017-07-01 07:15] LABS: ALB/GLOB RATIO 1.2 (1.1-1.8); ALBUMIN 3.6 g/dL (3.0-4.8); ALT/SGPT 62 U/L (7-56); AST/SGOT 45 U/L (17-59); BLOOD UREA NITROGEN 15 mg/dL (7-21); CALCIUM 9.1 mg/dL (8.4-10.5); GFR AFRICAN-AMERICAN > 60; GFR NON-AFRICAN AMERICAN > 60
[2017-07-01 12:18] VITALS: BP 141/74; PULSE 57; TEMP 98
--- NOTE | 2017-07-01 15:55 | CP.PCM.DIS ---
<Lisa Resendez - Last Filed: 07/01/17 15:50> Provider - Provider Date of Admission: 06/29/17 12:12 Attending physician: Jessica Naranjo MD Primary care physician: Castillo Puentes MD Consults: Dr. Duval Time Spent in preparation of Discharge (in minutes): 35 Diagnosis - Discharge Diagnosis (1) CAD (coronary artery disease) Status: Chronic Priority: Medium Hospital Course - Lab Results Lab Results: Most Recent Lab Values WBC 7.4 10^3/ul (4.5-11.0) 07/01/17 05:30 RBC 5.09 10^6/uL (3.5-6.1) 07/01/17 05:30 Hgb 14.6 g/dL (14.0-18.0) 07/01/17 05:30 Hct 45.2 % (42.0-52.0) 07/01/17 05:30 MCV 88.8 fl (80.0-105.0) 07/01/17 05:30 MCH 28.7 pg (25.0-35.0) 07/01/17 05:30 MCHC 32.3 g/dl (31.0-37.0) 07/01/17 05:30 RDW 14.0 % (11.5-14.5) 07/01/17 05:30 Plt Count 149 10^3/uL (120.0-450.0) 07/01/17 05:30 MPV 11.2 fl (7.0-11.0) H 07/01/17 05:30 Gran % 64.5 % (50.0-68.0) 07/01/17 05:30 Lymph % (Auto) 22.0 % (22.0-35.0) 07/01/17 05:30 [place] % (Auto) 11.4 % (1.0-6.0) H 07/01/17 05:30 Eos % (Auto) 1.8 % (1.5-5.0) 07/01/17 05:30 Baso % (Auto) 0.3 % (0.0-3.0) 07/01/17 05:30 Gran # 4.74 (1.4-6.5) 07/01/17 05:30 Lymph # (Auto) 1.6 (1.2-3.4) 07/01/17 05:30 [place] # (Auto) 0.8 (0.1-0.6) H 07/01/17 05:30 Eos # (Auto) 0.1 (0.0-0.7) 07/01/17 05:30 Baso # (Auto) 0.02 K/mm3 (0.0-2.0) 07/01/17 05:30 PT 11.3 SECONDS (9.4-12.5) 06/28/17 04:50 INR 0.98 (0.93-1.08) 06/28/17 04:50 APTT 26.3 Seconds (25.1-36.5) 06/28/17 05:00 D-Dimer, Quantitative < 200 ng/mL (0-243) 06/28/17 06:30 pCO2 38 mm/Hg (35-45) 06/28/17 05:09 pO2 68.0 mm/Hg (80-100) L 06/28/17 05:09 HCO3 23.5 mmol/L (21-28) 06/28/17 05:09 ABG pH 7.40 (7.35-7.45) 06/28/17 05:09 ABG Total CO2 24.7 mmol.L (22-28) 06/28/17 05:09 ABG O2 Saturation 96.8 % (95-98) 06/28/17 05:09 ABG Base Excess -1.1 mmol/L (-2.0-3.0) 06/28/17 05:09 ABG Potassium 3.6 mmol/L (3.6-5.2) 06/28/17 05:09 Sodium 138.0 mmol/L (132-148) 06/28/17 05:09 Chloride 108.0 mmol/L (98-107) H 06/28/17 05:09 Glucose 161 mg/dl (75-110) H 06/28/17 05:09 Lactate 1.6 mmol/L (0.7-2.1) 06/28/17 05:09 FiO2 21.0 % 06/28/17 05:09 Sodium 141 mmol/L (132-148) 07/01/17 05:30 Potassium 4.1 mmol/L (3.6-5.0) 07/01/17 05:30 Chloride 105 mmol/L (98-107) 07/01/17 05:30 Carbon Dioxide 26 mmol/L (21-33) 07/01/17 05:30 Anion Gap 13 (10-20) 07/01/17 05:30 BUN 15 mg/dL (7-21) 07/01/17 05:30 Creatinine 0.9 mg/dl (0.8-1.5) 07/01/17 05:30 Est GFR ( Amer) > 60 07/01/17 05:30 Est GFR (Non-Af Amer) > 60 07/01/17 05:30 POC Glucose (mg/dL) 140 mg/dL (65-110) H 06/28/17 04:39 Random Glucose 90 mg/dL (70-110) 07/01/17 05:30 Calcium 9.1 mg/dL (8.4-10.5) 07/01/17 05:30 Total Bilirubin 0.6 mg/dL (0.2-1.3) 07/01/17 05:30 AST 45 U/L (17-59) 07/01/17 05:30 ALT 62 U/L (7-56) H 07/01/17 05:30 Alkaline Phosphatase 49 U/L (38-126) 07/01/17 05:30 Lactate Dehydrogenase 676 U/L (333-699) 06/28/17 07:02 Total Creatine Kinase 293 U/L (35-230) H 06/28/17 07:02 CK-MB (CK-2) 3.8 ng/mL (0.0-3.6) H 06/28/17 07:02 CK-MB (CK-2) % Cancelled 06/28/17 05:00 Troponin I 0.14 ng/mL H* 06/28/17 12:45 NT-Pro-B Natriuret Pep 111 pg/mL (0-450) 06/28/17 05:00 Total Protein 6.7 g/dL (5.8-8.3) 07/01/17 05:30 Albumin 3.6 g/dL (3.0-4.8) 07/01/17 05:30 Globulin 3.1 gm/dL 07/01/17 05:30 Albumin/Globulin Ratio 1.2 (1.1-1.8) 07/01/17 05:30 Arterial Blood Potassium 3.6 mmol/L (3.6-5.2) 06/28/17 05:09 Urine Color yellow (YELLOW) 06/28/17 05:30 Urine Appearance Slight-cloudy (CLEAR) 06/28/17 05:30 Urine pH 6.0 (4.7-8.0) 06/28/17 05:30 Ur Specific [place] >= 1.030 (1.005-1.035) 06/28/17 05:30 Urine Protein >=300 mg/dL (<30 mg/dL) H 06/28/17 05:30 Urine Glucose (UA) 100 mg/dL (NEGATIVE) H 06/28/17 05:30 Urine Ketones Negative mg/dL (NEGATIVE) 06/28/17 05:30 Urine Blood Trace-intact (NEGATIVE) H 06/28/17 05:30 Urine Nitrate Negative (NEGATIVE) 06/28/17 05:30 Urine Bilirubin Negative (NEGATIVE) 06/28/17 05:30 Urine Urobilinogen 0.2 E.U./dL (<1 E.U./dL) 06/28/17 05:[address] Negative [address]/uL (NEGATIVE) 06/28/17 05:30 Urine RBC 5 - 10 /hpf (0-2) 06/28/17 05:30 Urine WBC 2 - 5 /hpf (0-6) 06/28/17 05:30 Ur Epithelial Cells 6 - 8 /hpf (0-5) 06/28/17 05:30 Amorphous Sediment Moderate 06/28/17 05:30 Influenza Typ A,B (EIA) Negative for flu a/b (NEGATIVE) 06/28/17 04:50 - Hospital Course Hospital Course: Upon Admission: 67 yo male with PMH of CAD s/p 3 stents presents to ED after found him minimally responsive this morning. Per at bedside patient was snoring abnormally and when she tried to wake him up he was not responding. She also states that he was diaphoretic and holding his chest. She called EMS. Patient states that he does not recall the event and woke up in the ED. He states that he was nausea when he awoke and report a headache with some lightheadedness when he sits up. He does report 1 episode of SOB while taking out the trash last night. He states that he normally does not become sob and exercise about 1 hour a day. His last stress test was about 1 year ago. He states that he is compliant with his medications and saw his intranet developer about 2 months ago. Hospital Course: Patient was admitted for possible ACS. Troponins were elevated and trending up ( 0.1, 0.13, 0.14). EKG showed sinus bradycardia in the 50s. CXR was unremarkable , BNP was 111, and D-dimer was within normal limits. Patient was started on home meds (lopressor 25mg bid, asa 81mg, lipitor 40mg) as well as lovenox and lisinopril. Cardiology consulted (Mukund) who ordered and echo showing grade 1 diastolic dysfunction, mild LVH, borderline systolic function, mild mitral regurgitation, EF: 50.1%. Patient had cardiac cardiac cath with stent placed in LAD. Patient was obsvered 24 hours post catheterization and cleared by cardiology for discharge. Please note that this is a summary of events. For more details, please see complete medical record. Discharge Exam - Head Exam Head Exam: ATRAUMATIC, NORMAL INSPECTION, NORMOCEPHALIC - Eye Exam Eye Exam: EOMI, Normal appearance, PERRL - ENT Exam ENT Exam: Mucous Membranes Moist - Respiratory Exam Respiratory Exam: Clear to PA & Lateral, NORMAL BREATHING PATTERN, UNREMARKABLE - Cardiovascular Exam Cardiovascular Exam: RRR, +S1, +S2 - GI/Abdominal Exam GI & Abdominal Exam: Normal Bowel Sounds, Unremarkable - Extremities Exam Extremities exam: normal inspection - Neurological Exam Neurological exam: Alert, Oriented x3 - Psychiatric Exam Psychiatric exam: Normal Affect, Normal Mood - Skin Skin Exam: Dry, Intact, Normal Color, Warm Discharge Plan - Discharge Medications Prescriptions: Atorvastatin [Lipitor] 40 mg PO DIN #30 tab Clopidogrel [Plavix] 75 mg PO DAILY #30 tab Lisinopril [Zestril] 2.5 mg PO DAILY 30 Days #30 tab - Follow Up Plan Condition: GOOD Disposition: HOME/ ROUTINE Instructions: Coronary Artery Disease (DC), Heart Healthy Diet (DC), Near Syncope (ED), Heart Catheterization (DC) Additional Instructions: - Please follow up with you Primary MD and Dr. Duval (intranet developer) within 1 week of discharge. - Please fill the prescriptions provided at your nearest pharmacy and take them as instructed. Referrals: Castillo Puentes MD [Primary Care Provider] - Xavi Duval MD [Staff Provider] - <Jessica Naranjo - Last Filed: 07/01/17 18:31> Provider - Provider Date of Admission: 06/29/17 12:12 Attending physician: Jessica Naranjo MD Primary care physician: Castillo Puentes MD Hospital Course - Lab Results Lab Results: Most Recent Lab Values WBC 7.4 10^3/ul (4.5-11.0) 07/01/17 05:30 RBC 5.09 10^6/uL (3.5-6.1) 07/01/17 05:30 Hgb 14.6 g/dL (14.0-18.0) 07/01/17 05:30 Hct 45.2 % (42.0-52.0) 07/01/17 05:30 MCV 88.8 fl (80.0-105.0) 07/01/17 05:30 MCH 28.7 pg (25.0-35.0) 07/01/17 05:30 MCHC 32.3 g/dl (31.0-37.0) 07/01/17 05:30 RDW 14.0 % (11.5-14.5) 07/01/17 05:30 Plt Count 149 10^3/uL (120.0-450.0) 07/01/17 05:30 MPV 11.2 fl (7.0-11.0) H 07/01/17 05:30 Gran % 64.5 % (50.0-68.0) 07/01/17 05:30 Lymph % (Auto) 22.0 % (22.0-35.0) 07/01/17 05:30 [place] % (Auto) 11.4 % (1.0-6.0) H 07/01/17 05:30 Eos % (Auto) 1.8 % (1.5-5.0) 07/01/17 05:30 Baso % (Auto) 0.3 % (0.0-3.0) 07/01/17 05:30 Gran # 4.74 (1.4-6.5) 07/01/17 05:30 Lymph # (Auto) 1.6 (1.2-3.4) 07/01/17 05:30 [place] # (Auto) 0.8 (0.1-0.6) H 07/01/17 05:30 Eos # (Auto) 0.1 (0.0-0.7) 07/01/17 05:30 Baso # (Auto) 0.02 K/mm3 (0.0-2.0) 07/01/17 05:30 PT 11.3 SECONDS (9.4-12.5) 06/28/17 04:50 INR 0.98 (0.93-1.08) 06/28/17 04:50 APTT 26.3 Seconds (25.1-36.5) 06/28/17 05:00 D-Dimer, Quantitative < 200 ng/mL (0-243) 06/28/17 06:30 pCO2 38 mm/Hg (35-45) 06/28/17 05:09 pO2 68.0 mm/Hg (80-100) L 06/28/17 05:09 HCO3 23.5 mmol/L (21-28) 06/28/17 05:09 ABG pH 7.40 (7.35-7.45) 06/28/17 05:09 ABG Total CO2 24.7 mmol.L (22-28) 06/28/17 05:09 ABG O2 Saturation 96.8 % (95-98) 06/28/17 05:09 ABG Base Excess -1.1 mmol/L (-2.0-3.0) 06/28/17 05:09 ABG Potassium 3.6 mmol/L (3.6-5.2) 06/28/17 05:09 Sodium 138.0 mmol/L (132-148) 06/28/17 05:09 Chloride 108.0 mmol/L (98-107) H 06/28/17 05:09 Glucose 161 mg/dl (75-110) H 06/28/17 05:09 Lactate 1.6 mmol/L (0.7-2.1) 06/28/17 05:09 FiO2 21.0 % 06/28/17 05:09 Sodium 141 mmol/L (132-148) 07/01/17 05:30 Potassium 4.1 mmol/L (3.6-5.0) 07/01/17 05:30 Chloride 105 mmol/L (98-107) 07/01/17 05:30 Carbon Dioxide 26 mmol/L (21-33) 07/01/17 05:30 Anion Gap 13 (10-20) 07/01/17 05:30 BUN 15 mg/dL (7-21) 07/01/17 05:30 Creatinine 0.9 mg/dl (0.8-1.5) 07/01/17 05:30 Est GFR ( Amer) > 60 07/01/17 05:30 Est GFR (Non-Af Amer) > 60 07/01/17 05:30 POC Glucose (mg/dL) 140 mg/dL (65-110) H 06/28/17 04:39 Random Glucose 90 mg/dL (70-110) 07/01/17 05:30 Calcium 9.1 mg/dL (8.4-10.5) 07/01/17 05:30 Total Bilirubin 0.6 mg/dL (0.2-1.3) 07/01/17 05:30 AST 45 U/L (17-59) 07/01/17 05:30 ALT 62 U/L (7-56) H 07/01/17 05:30 Alkaline Phosphatase 49 U/L (38-126) 07/01/17 05:30 Lactate Dehydrogenase 676 U/L (333-699) 06/28/17 07:02 Total Creatine Kinase 293 U/L (35-230) H 06/28/17 07:02 CK-MB (CK-2) 3.8 ng/mL (0.0-3.6) H 06/28/17 07:02 CK-MB (CK-2) % Cancelled 06/28/17 05:00 Troponin I 0.14 ng/mL H* 06/28/17 12:45 NT-Pro-B Natriuret Pep 111 pg/mL (0-450) 06/28/17 05:00 Total Protein 6.7 g/dL (5.8-8.3) 07/01/17 05:30 Albumin 3.6 g/dL (3.0-4.8) 07/01/17 05:30 Globulin 3.1 gm/dL 07/01/17 05:30 Albumin/Globulin Ratio 1.2 (1.1-1.8) 07/01/17 05:30 Arterial Blood Potassium 3.6 mmol/L (3.6-5.2) 06/28/17 05:09 Urine Color yellow (YELLOW) 06/28/17 05:30 Urine Appearance Slight-cloudy (CLEAR) 06/28/17 05:30 Urine pH 6.0 (4.7-8.0) 06/28/17 05:30 Ur Specific [place] >= 1.030 (1.005-1.035) 06/28/17 05:30 Urine Protein >=300 mg/dL (<30 mg/dL) H 06/28/17 05:30 Urine Glucose (UA) 100 mg/dL (NEGATIVE) H 06/28/17 05:30 Urine Ketones Negative mg/dL (NEGATIVE) 06/28/17 05:30 Urine Blood Trace-intact (NEGATIVE) H 06/28/17 05:30 Urine Nitrate Negative (NEGATIVE) 06/28/17 05:30 Urine Bilirubin Negative (NEGATIVE) 06/28/17 05:30 Urine Urobilinogen 0.2 E.U./dL (<1 E.U./dL) 06/28/17 05:[address]/uL (NEGATIVE) 06/28/17 05:30 Urine RBC 5 - 10 /hpf (0-2) 06/28/17 05:30 Urine WBC 2 - 5 /hpf (0-6) 06/28/17 05:30 Ur Epithelial Cells 6 - 8 /hpf (0-5) 06/28/17 05:30 Amorphous Sediment Moderate 06/28/17 05:30 Influenza Typ A,B (EIA) Negative for flu a/b (NEGATIVE) 06/28/17 04:50 Attending/Attestation - Attestation I have personally seen and examined this patient.: Yes I have fully participated in the care of the patient.: Yes I have reviewed all pertinent clinical information, including history, physical exam and plan: Yes Notes (Text): 07/01/17 18:26 Patient was seen and examined with medical diagnostic radiographer. 67 yrs old male with PMH of CAD s/p 3 stents,HTN,Hyperlipidemia is admitted with diaphoresis, H/O intermittent dyspnea on exertion found to have elevated troponin suggestive of NSEMI.Patient underwent cardiac catherization today and had PTCA and proximal LAD stent was placed.Patient remain stable after the procedure.Patient remain stable . Continue ASA/Plavix/Metoprolol/Lipitor and lisinopril. Management plan was discussed in detail with patient. Education was provided.
--- NOTE | 2017-07-01 18:03 | PN ---
DATE: SUBJECTIVE: The patient denies any chest pain. No groin bleeding. No shortness of breath. PHYSICAL EXAMINATION: VITAL SIGNS: Blood pressure 141/74, heart rate 67, temperature 98 degrees, respirations 20. HEENT: Normocephalic. CHEST: Clear. HEART: S1 and S2, regular. ABDOMEN: Soft. EXTREMITIES: No edema, no hematoma. LABORATORY DATA: Today's hemoglobin, hematocrit, white count, and platelet count are within normal limit. SMA-7 is within normal limit. ASSESSMENT: 1. Status post [id number] myocardial infarction. 2. Status post stenting to 95% stenosis of the proximal left anterior descending. RECOMMENDATIONS: The patient can be discharged on his current medications including aspirin 81 mg once a day, Lipitor 40 mg once a day, Lopressor 25 mg twice a day, Plavix 75 mg once a day, Zestril 2.5 mg once a day with follow up with Dr. Xavi Duval in 1 to 2 weeks. Marcus Dubon MD
--- NOTE | 2017-07-01 23:38 | CARD ---
APPROVED REPORT EKG Measurement Heart [id number] CT [id number] <Conclusion> Sinus bradycardia Possible Left atrial enlargement Borderline ECG
== END 2017-07-01 13:40 | disposition home or self-care (01) | DRG 247 ==
LOC: ED 04:33 → ERH 07:40 → 2RSO 09:07 → OBSVTOIN 06-29 12:12
PROVIDERS: ADMIT Internal Medicine; ATTEND Internal Medicine
PROC: 027034Z Dilation of Coronary Artery, One Artery with Drug-eluting Intraluminal Device, Percutaneous Approach (ICD-10-PCS; principal; 2017-06-30)
PROC: 4A023N7 Measurement of Cardiac Sampling and Pressure, Left Heart, Percutaneous Approach (ICD-10-PCS; 2017-06-30)
PROC: B2151ZZ Fluoroscopy of Left Heart using Low Osmolar Contrast (ICD-10-PCS; 2017-06-30)
PROC: B2111ZZ Fluoroscopy of Multiple Coronary Arteries using Low Osmolar Contrast (ICD-10-PCS; 2017-06-30)
DX: I21.4 Non-ST elevation (NSTEMI) myocardial infarction (principal); I25.82 Chronic total occlusion of coronary artery; I25.10 Atherosclerotic heart disease of native coronary artery without angina pectoris; I10 Essential (primary) hypertension; E78.00 Pure hypercholesterolemia, unspecified; R09.02 Hypoxemia; I34.0 Nonrheumatic mitral (valve) insufficiency

== ENCOUNTER 2018-07-07 06:21 | Outpatient (CLI) | payer MEDICARE, OTHER | END 2018-07-07 06:22 | disposition home or self-care (01) | LOC: CARDIO 06:21 | DX: I25.10 Atherosclerotic heart disease of native coronary artery without angina pectoris (principal) ==

== ENCOUNTER 2018-07-13 06:36 | Day surgery (SDC) | payer MEDICARE, OTHER ==
[2018-07-07 11:49] VITALS: BMI 28.3
[2018-07-13 07:22] LABS: BASO # 0.01 K/mm3 (0.0-2.0); BASO % 0.2 % (0.0-3.0); EOS # 0.1 (0.0-0.7); HEMOGLOBIN 15.3 g/dL (14.0-18.0); LYMPH # 1.6 (1.2-3.4); MEAN CELL VOLUME 89.6 fl (80.0-105.0); MEAN CORPUSCULAR HEMOGLOBIN 28.9 pg (25.0-35.0); MEAN CORPUSCULAR HGB CONC 32.2 g/dl (31.0-37.0); MEAN PLATELET VOLUME 10.8 fl (7.0-11.0); MONO # 0.9 (0.1-0.6); MONO % 15.2 % (1.0-6.0); RBC 5.3 10^6/uL (3.5-6.1); RED CELL DISTRIBUTION WIDTH 13.2 % (11.5-14.5); WHITE BLOOD COUNT 5.6 10^3/uL (4.5-11.0)
[2018-07-13 07:31] LABS: INR 1.11; PARTIAL THROMBOPLASTIN TIME 31.2 Seconds (26.9-38.3); PROTHROMBIN TIME 12.5 SECONDS (9.4-12.5)
[2018-07-13 07:33] LABS: BLOOD UREA NITROGEN 15 mg/dL (7-21); CALCIUM 8.7 mg/dL (8.4-10.5); GFR NON-AFRICAN AMERICAN > 60; HDL CHOLESTEROL 32 mg/dL (29-60)
[2018-07-13 07:43] LABS: LDL CHOLESTEROL 54 mg/dL (0-129)
[2018-07-13 07:53] VITALS: RESP 18
[2018-07-13] MEDS ORDERED: Lidocaine 2% Inj (20ml) ONE (08:30)
[2018-07-13] MEDS ORDERED: Iohexol 350mgl/ml 50 ML ONE (08:31)
[2018-07-13] MEDS ORDERED: Nitroglycerin 50mg in D5W 0 MG/0 ML BOTTLE IV ONE (08:31)
[2018-07-13] MEDS ORDERED: Iohexol 350 MG/100 ML VIAL ONE (08:31)
[2018-07-13] MEDS ORDERED: Midazolam 2 MG/2 ML VIAL ONE ×2 (08:52→08:59)
[2018-07-13] MEDS ORDERED: Sodium Chloride 0.9% 1,000 ML IV SCH (09:45)
[2018-07-13 10:02] VITALS: TEMP 97.7
--- NOTE | 2018-07-13 14:36 | CARDCATH ---
PROCEDURE DATE: 07/13/2018 PROCEDURE: 1. Left heart catheterization with coronary arteriography and left ventriculogram. HISTORY: The patient is a 68-year-old male with a history of multivessel CAD with stents in the past, who presents with an abnormal stress test. In addition, the patient had a 40% left main in his previous catheterization. Because of this, cardiac catheterization was recommended. The right femoral artery was cannulated with a 6-Arm[place] sheath. There were no complications. I performed moderate sedation which included the presence of an independent trained observer that assisted in monitoring the patient's level of consciousness and physiologic status. After administration of Versed and fentanyl, my intra service time was 15 minutes. The findings on catheterization revealed a left ventricle that contracted normally. Estimated ejection fraction of 60%. The patient had a right dominant circulation. The RCA was occluded in its ostium which is chronic. The left main artery revealed an eccentric 80% stenoses at its distal portion. The LAD revealed diffuse atherosclerosis with 70-80% ostial stenoses. In addition, there was a long stent in the LAD which revealed an in-stent restenosis of approximately 60-70%. There is disease in the diagonal vessel as well. The circumflex artery revealed 80% stenoses in its posterolateral branch. Angio-Seal was used to close the femoral artery site. The patient tolerated the procedure well. In summary, the procedure revealed an eccentric critical left main stenoses of 80%. Triple-vessel disease as noted. In-stent restenosis of the LAD is noted. LV function is normal. Given these findings, the patient's treatment should be coronary artery bypass surgery. I have discussed this in detail with the patient and family. Arrangements have been made to the patient to undergo coronary bypass surgery in Hospital with Dr. Jhaveri. All questions were answered. In addition, Plavix will be stopped. Xavi Duval MD
[2018-07-13 15:47] VITALS: O2SAT 98
[2018-07-13 15:48] VITALS: BP 107/55; PULSE 59
--- NOTE | 2018-07-13 21:36 | CARD ---
APPROVED REPORT Date of service: 07/13/2018 EKG Measurement Heart [id number] GA [id number] <Conclusion> Sinus bradycardia Otherwise normal ECG
== END 2018-07-13 16:15 | disposition home or self-care (01) ==
LOC: CATH 06:36
PROVIDERS: ATTEND Internal Medicine Cardiovascular Disease
DX: T82.855A Stenosis of coronary artery stent, initial encounter (principal); I25.10 Atherosclerotic heart disease of native coronary artery without angina pectoris; I10 Essential (primary) hypertension; E78.5 Hyperlipidemia, unspecified; Y83.1 Surgical operation with implant of artificial internal device as the cause of abnormal reaction of the patient, or of later complication, without mention of misadventure at the time of the procedure; Z95.5 Presence of coronary angioplasty implant and graft
CPT/HCPCS: 36415; 80048; 80061; 85025; 85610; 85730; 86850; 86900; 93005; 93458; 99152; C1760; C1769; C2629; J1644; J2250; J3010; J7030; J7040; Q9967